=== PATIENT | female | born 1980 | race Caucasian/White ===

== ENCOUNTER 2017-04-01 15:24 | Emergency (ER) | payer MEDICAID, OTHER ==
[2017-04-01 15:44] VITALS: BP 125/95
--- NOTE | 2017-04-01 16:01 | EDM.PDOC ---
ED HPI GENERAL MEDICAL PROBLEM - General Chief Complaint: ENT Problem Stated Complaint: RIGHT EYE SUDDEN LOSS OF VISION Time Seen by Provider: 04/01/17 15:45 Source of Information: Reports: Patient History Limitations: Reports: No Limitations - History of Present Illness INITIAL COMMENTS - FREE TEXT/NARRATIVE: 36-year-old female was running on a treadmill and was about 2 miles into her run when she developed a very sudden "white out" of her vision on the right side. She also developed some facial pain, and tenderness through the zygomatic area. This happened within the last half hour so she came directly to the emergency room. No nausea or vomiting, trauma, or recent illness. Onset: Sudden Duration: Hour(s): (Within the past hour) Location: Reports: Face (Including right zygomatic area and right eye) Severity: Moderate Associated Symptoms: Denies: Confusion, Fever/Chills, Headaches, Loss of Appetite, Shortness of Breath Right Face Pain Score (Numeric/FACES): 7 - Related Data Allergies Allergy/AdvReac Type Severity Reaction Status Date / Time acetaminophen [From Percocet] Allergy Itching Verified 04/01/17 15:48 Latex, Natural Rubber Allergy Itching Verified 04/01/17 15:48 oxycodone HCl [From Percocet] Allergy Itching Verified 04/01/17 15:48 Home Meds: Home Meds Dextroamphetamine/Amphetamine [Dextroamp-Amphet ER] 20 mg PO DAILY 04/01/17 [ History] Past Medical History HEENT History: Reports: Other (See Below) Other HEENT History: MEWDS l eye recent pinkk eye Cardiovascular History: Reports: Hypertension Psychiatric History: Reports: Anxiety Endocrine/Metabolic History: Reports: Other (See Below) Other Endocrine/Metabolic History: past diabeties Type 2 - Infectious Disease History Infectious Disease History: Reports: Chicken Pox, Measles - Past Surgical History GI Surgical History: Reports: Cholecystectomy, Other (See Below) Other GI Surgeries/Procedures: gastric sleve 2014 Social & Family History - Tobacco Use Smoking Status *Q: Never Smoker Second Hand Smoke Exposure: No - Caffeine Use Caffeine Use: Reports: Coffee, Soda - Alcohol Use Days Per Week of Alcohol Use: 0 - Recreational Drug Use Recreational Drug Use: No ED ROS GENERAL - Review of Systems Review Of Systems: See Below Constitutional: Denies: Fever, Chills Respiratory: Denies: Shortness of Breath GI/Abdominal: Denies: Nausea, Vomiting Skin: Reports: No Symptoms Neurological: Denies: Headache ED EXAM GENERAL W FULL EYE - Physical Exam Exam: See Below Exam Limited By: No Limitations General Appearance: Alert, No Apparent Distress, Anxious Visual Acuity (R) 20/: 20 Visual Acuity (L) 20/: 70 With Correction: No Eyelids: Bilateral: Normal Appearance Extraocular Movements: Bilateral: Intact Pupils: Normal Accommodation Pupillary Size: Bilateral: 2 mm Head: Other (Patient does have some palpation tenderness to the zygomatic area of the face on the right side but no asymmetry, swelling, erythema or rash) Respiratory/Chest: No Respiratory Distress Course - Vital Signs Last Recorded V/S: Last Vital Signs Temp 97.7 F 04/01/17 15:56 Pulse 86 04/01/17 15:56 Resp 16 04/01/17 15:56 BP 125/95 H 04/01/17 15:56 Pulse Ox 100 04/01/17 15:56 - Re-Assessments/Exams Free Text/Narrative Re-Assessment/Exam: 04/01/17 16:05 I'm unsure if this is related to arthritis, migraine or retinal injury but I think she needs a fairly urgent ophthalmology examination. Fortunately Dr. Rodgers at [facility] agreed to see the patient so she was sent directly over there. If any further emergency room workup is needed she can be sent back. Departure - Departure Time of Disposition: 16:00 Disposition: Home, Self-Care 01 Condition: Good Clinical Impression: Visual loss - Discharge Information Referrals: Dianne Horton CNM [Primary Care Provider] - Forms: ED Department Discharge Care Plan Goals: Go directly over to [facility] for an eye examination and return for any unfinished testing needed.
== END 2017-04-01 16:02 | disposition home or self-care (01) ==
LOC: JP.ED 15:24
DX: H54.7 Unspecified visual loss (principal); I10 Essential (primary) hypertension; E11.9 Type 2 diabetes mellitus without complications; Z88.6 Allergy status to analgesic agent; Z91.040 Latex allergy status
CPT/HCPCS: 99283

== ENCOUNTER 2019-02-13 07:15 | Day surgery (SDC) | payer BC, MEDICAID ==
[2019-02-13] MEDS ORDERED: Propofol 200 MG/20 ML SDV ONE (07:57)
[2019-02-13] MEDS ORDERED: Midazolam 1 MG/ML 2 ML SDV ONE (07:58)
[2019-02-13] MEDS ORDERED: fentaNYL 100 MCG/2 ML SDV ONE (07:58)
[2019-02-13] MEDS ORDERED: Dextrose 5%-Lactated Ringers 1,000 ML IV SCH (08:00)
[2019-02-13] MEDS ORDERED: Glycopyrrolate 0.2 MG/ML 2 ML SDV IVPUSH ONE (08:00)
[2019-02-13 10:18] VITALS: BP 122/76; PULSE 62
--- NOTE | 2019-02-20 13:28 | OR ---
DATE OF PROCEDURE: 02/13/2019 SURGEON: Blayne Jain MD PREOPERATIVE DIAGNOSIS: Right lower quadrant pain, status post sleeve gastrectomy. POSTOPERATIVE DIAGNOSES: 1. Right lower quadrant pain associated with normal upper GI endoscopic examination, status post sleeve gastrectomy. 2. Normal colonic exam. OPERATIVE PROCEDURE: 1. Esophagogastroduodenoscopy with antral biopsies for CLOtest. 2. Flexible colonoscopy. ANESTHESIA: IV sedation. INDICATION FOR PROCEDURE: This is a 38-year-old who presents with history of sleeve gastrectomy done in the [facility] in 2014. She now is complaining of some pain, which begins in the postprandial period as well as prior to having a bowel movement. The pain is dull, somewhat cramping, but more nagging and associated with some anorexia, nausea, and some diarrhea. Additionally, the patient was noted to have a very low ferritin with a ferritin of 7 and hemoglobin of 9.9, an iron-deficiency type anemia. The plan is to proceed with upper GI endoscopy along with colonoscopy. Of note, the patient did have a normal CT scan, status post previous cholecystectomy and sleeve gastrectomy. The potential risks of the procedure including bleeding and perforation were discussed, and the patient wishes to proceed. DETAILS OF PROCEDURE: The patient was taken to the operating room and placed in a left lateral decubitus position. IV sedation was administered, after which the upper GI endoscope was passed orally through the length of esophagus into the stomach and from there through the pyloric channel and into the junction of third and fourth portions of the duodenum. Overall, the upper GI endoscopic examination was entirely normal. There was no significant inflammation within the hypopharynx, larynx, or esophageal body. At the EG junction, no significant hiatal hernia was noted. Sleeve gastrectomy was free of any significant gross inflammation and appeared to be probably size of the gastric outlet and was unremarkable as was the portion of the duodenum examined. The scope was then withdrawn into the antrum, biopsies obtained for the CLOtest to assess the patient's H pylori status, and the scope then was withdrawn. Attention was taken to the colonoscopy. Initial digital rectal exam was performed and was unremarkable. The colonoscope was passed into the rectum with retroflexion revealing uncomplicated hemorrhoidal columns. The scope was eventually passed to the level of the cecum. The prep was fair. There was some liquid stool present, which obscured small amounts of the mucosal surfaces, but vast majority of the surfaces were well visualized to that level with no abnormalities noticed, particularly there were no areas of colitis, no areas of diverticular disease, and no polyps or other signs of neoplasia. The scope was then withdrawn, and the above findings were reconfirmed and the procedure was then concluded. The patient will be receiving some iron infusions, and her labs will be then checked for problems such as low thiamin or B12 and will be addressed as needed. Otherwise, the patient will be following with Janette Herrera in the next two weeks. If the pain persists, one of the options would be proceeding with diagnostic laparoscopy to make sure there was something surgically amenable. If that were done, an appendectomy would be minimally done. Otherwise, if that is negative, a gastroenterology consult may be warranted. Blayne Jain MD Job #: [id number]
== END 2019-02-13 10:40 | disposition home or self-care (01) ==
LOC: JP.SDS 07:15
PROVIDERS: ATTEND Surgery
DX: R10.31 Right lower quadrant pain (principal); K64.8 Other hemorrhoids; E11.9 Type 2 diabetes mellitus without complications; Z98.84 Bariatric surgery status
CPT/HCPCS: 43239; 45378; 81025; 87081; J2250; J2704; J3010; J3490; J7042

== ENCOUNTER 2019-03-01 10:18 | Emergency (ER) | payer BC, MEDICAID ==
--- NOTE | 2019-03-01 10:44 | EDM.PDOC ---
ED HPI GENERAL MEDICAL PROBLEM - General Chief Complaint: [employer]ING [employer] Problem Stated Complaint: BLEEDING/WEAKNESS Time Seen by Provider: 03/01/19 10:44 Source of Information: Reports: Patient History Limitations: Reports: No Limitations - History of Present Illness INITIAL COMMENTS - FREE TEXT/NARRATIVE: 38 years old female patient presented with chief complaint of heavy menstruation and vaginal bleeding started Saturday. Feeling dizzy and very weak. History of anemia. Also history of utrine mass denies any urinary symptom, suspicious for polyp and scheduled for surgery with [employer]CEIVING [employer]PER[employer] this coming Saturday. Also complaining of right-sided abdominal pain. No nausea or vomiting. Denies any fever. Denies any urinary symptom. Denies any diarrhea or constipation. Right Lower Abdomen Pain Score (Numeric/FACES): 5 - Related Data Allergies Allergy/AdvReac Type Severity Reaction Status Date / Time Latex, Natural Rubber Allergy Severe Itching, Verified 03/01/19 10:36 hives, rash oxycodone HCl [From Percocet] Allergy Intermediate Itching Verified 03/01/19 10: 36 acetaminophen [From Percocet] Allergy Itching Verified 03/01/19 10:36 Home Meds: Home Meds Biotin 5,000 mcg PO DAILY 02/12/19 [History] Cyanocobalamin (Vitamin B-12) [Vitamin B-12] 1,000 mcg PO DAILY 02/12/19 [ History] Ferrous Fumarate/Vitamin C [Vitron-C] 1 tab PO BID 02/12/19 [History] Folic Acid 1 mg pe PO DAILY 02/12/19 [History] Multivitamin [Multi-Vitamin Daily] 1 each PO DAILY 02/12/19 [History] Ondansetron [Ondansetron ODT] 4 mg PO Q8HR PRN 02/12/19 [History] Cholecalciferol (Vitamin D3) [Vitamin D3] 1,000 unit PO DAILY 02/13/19 [History] Vitamin B Complex 1 each PO DAILY 02/13/19 [History] Past Medical History HEENT History: Reports: Other (See Below) Other HEENT History: MEWDS l eye recent pinkk eye Cardiovascular History: Reports: Hypertension Respiratory History: Reports: Other (See Below) Other Respiratory History: pneumonia Genitourinary History: Reports: Other (See Below) Other Genitourinary History: bladder lift [employer] History: Reports: Psychiatric History: Reports: Anxiety Endocrine/Metabolic History: Reports: Other (See Below) Other Endocrine/Metabolic History: past diabeties Type 2 Hematologic History: Reports: Anemia - Infectious Disease History Infectious Disease History: Reports: Chicken Pox, Measles - Past Surgical History GI Surgical History: Reports: Cholecystectomy, Other (See Below) Other GI Surgeries/Procedures: gastric sleve 2014 Social & Family History - Tobacco Use Smoking Status *Q: Never Smoker - Caffeine Use Caffeine Use: Reports: Coffee, Soda - Recreational Drug Use Recreational Drug Use: No ED ROS GENERAL - Review of Systems Review Of Systems: Comprehensive ROS is negative, except as noted in HPI. ED EXAM, RENAL/ - Physical Exam Exam: See Below Exam Limited By: No Limitations General Appearance: Alert, WD/WN, No Apparent Distress Nose: Normal Inspection, Normal Mucosa, No Blood Throat/Mouth: Normal Inspection, Normal Lips, Normal Teeth, Normal Gums, Normal Oropharynx, Normal Voice, No Airway Compromise Head: Atraumatic, Normocephalic Neck: Normal Inspection, Supple, Non-Tender, Full Range of Motion Respiratory/Chest: No Respiratory Distress, Lungs Clear, Normal Breath Sounds, No Accessory Muscle Use, Chest Non-Tender Cardiovascular: Normal Peripheral Pulses, Regular Rate, Rhythm, No Edema, No Gallop, No JVD, No Murmur, No Rub GI/Abdominal: Normal Bowel Sounds, Soft, No Organomegaly, No Distention, No Abnormal Bruit, No Mass, Tender, Other (Right lower quadrant abdominal tenderness. No guarding no rebound.) (Female) Exam: Normal External Exam, Normal Speculum Exam, Vaginal Bleeding. No: Uterine Tenderness, Vaginal Discharge, Vaginal Tears Extremities: Normal Inspection, Normal Range of Motion, Non-Tender, Normal Capillary Refill, No Pedal Edema Neurological: Alert (Review), Oriented, CN II-XII Intact, Normal Cognition, Normal Gait, Normal Reflexes, No Motor/Sensory Deficits Skin Exam: Warm, Dry, Intact, Normal Color, No Rash Course - Vital Signs Last Recorded V/S: Last Vital Signs Temp 37.0 C 03/01/19 10:34 Pulse 64 03/01/19 10:34 Resp 16 03/01/19 10:34 BP 135/83 03/01/19 10:34 Pulse Ox 100 03/01/19 10:34 - Orders/Labs/Meds Labs: Laboratory Tests 03/01/19 03/01/19 03/01/19 Range/Units 11:03 11:03 11:03 WBC 3.9 L (4.5-11.0) K/uL RBC 5.00 (3.30-5.50) M/uL Hgb 11.4 L (12.0-15.0) g/dL Hct 38.5 (36.0-48.0) % MCV 77 L (80-98) fL MCH 23 L (27-31) pg MCHC 30 L (32-36) % Plt Count 367 (150-400) K/uL Neut % (Auto) 46 (36-66) % Lymph % (Auto) 45 H (24-44) % [place] % (Auto) 8 H (2-6) % Eos % (Auto) 1 L (2-4) % Baso % (Auto) 1 (0-1) % PT 10.9 (9.5-12.0) sec INR 1.01 (0.80-1.20) APTT 28.7 (27.0-36.0) sec Sodium 140 (140-148) mmol/L Potassium 3.9 (3.6-5.2) mmol/L Chloride 105 (100-108) mmol/L Carbon Dioxide 26 (21-32) mmol/L Anion Gap 8.9 (5.0-14.0) mmol/L BUN 7 (7-18) mg/dL Creatinine 0.6 (0.6-1.0) mg/dL Est Cr Clr Drug Dosing 116.68 mL/min Estimated GFR (MDRD) > 60 (>60) Glucose 85 (74-106) mg/dL Lactic Acid (0.4-2.0) mmol/L Calcium 8.1 L (8.5-10.1) mg/dL Total Bilirubin 0.4 (0.2-1.0) mg/dL AST 16 (15-37) U/L ALT 31 (12-78) U/L Alkaline Phosphatase 72 (46-116) U/L Total Protein 6.8 (6.4-8.2) g/dL Albumin 3.5 (3.4-5.0) g/dL Globulin 3.3 (2.3-3.5) g/dL Albumin/Globulin Ratio 1.1 L (1.2-2.2) Lipase 187 (73-393) U/L Urine Color (YELLOW) Urine Appearance (CLEAR) Urine pH (5.0-8.0) Ur Specific [place] (1.008-1.030) Urine Protein (NEGATIVE) mg/dL Urine Glucose (UA) (NEGATIVE) mg/dL Urine Ketones (NEGATIVE) mg/dL Urine Occult Blood (NEGATIVE) Urine Nitrite (NEGATIVE) Urine Bilirubin (NEGATIVE) Urine Urobilinogen (0.2-1.0) EU/dL Ur Leukocyte Esterase (NEGATIVE) Urine RBC (0-5) Urine WBC (0-5) Ur Epithelial Cells Amorphous Sediment Urine Bacteria Urine Mucus Urine HCG, Qual 03/01/19 03/01/19 03/01/19 Range/Units 11:03 11:35 11:35 WBC (4.5-11.0) K/uL RBC (3.30-5.50) M/uL Hgb (12.0-15.0) g/dL Hct (36.0-48.0) % MCV (80-98) fL MCH (27-31) pg MCHC (32-36) % Plt Count (150-400) K/uL Neut % (Auto) (36-66) % Lymph % (Auto) (24-44) % [place] % (Auto) (2-6) % Eos % (Auto) (2-4) % Baso % (Auto) (0-1) % PT (9.5-12.0) sec INR (0.80-1.20) APTT (27.0-36.0) sec Sodium (140-148) mmol/L Potassium (3.6-5.2) mmol/L Chloride (100-108) mmol/L Carbon Dioxide (21-32) mmol/L Anion Gap (5.0-14.0) mmol/L BUN (7-18) mg/dL Creatinine (0.6-1.0) mg/dL Est Cr Clr Drug Dosing mL/min Estimated GFR (MDRD) (>60) Glucose (74-106) mg/dL Lactic Acid 1.3 (0.4-2.0) mmol/L Calcium (8.5-10.1) mg/dL Total Bilirubin (0.2-1.0) mg/dL AST (15-37) U/L ALT (12-78) U/L Alkaline Phosphatase (46-116) U/L Total Protein (6.4-8.2) g/dL Albumin (3.4-5.0) g/dL Globulin (2.3-3.5) g/dL Albumin/Globulin Ratio (1.2-2.2) Lipase (73-393) U/L Urine Color Red A (YELLOW) Urine Appearance Turbid A (CLEAR) Urine pH 7.0 (5.0-8.0) Ur Specific [place] 1.015 (1.008-1.030) Urine Protein >=300 H (NEGATIVE) mg/dL Urine Glucose (UA) Negative (NEGATIVE) mg/dL Urine Ketones Negative (NEGATIVE) mg/dL Urine Occult Blood Large H (NEGATIVE) Urine Nitrite Negative (NEGATIVE) Urine Bilirubin Negative (NEGATIVE) Urine Urobilinogen 0.2 (0.2-1.0) EU/dL Ur Leukocyte Esterase Trace H (NEGATIVE) Urine RBC Packed H (0-5) Urine WBC 0-5 (0-5) Ur Epithelial Cells Few Amorphous Sediment Not seen Urine Bacteria Rare Urine Mucus Not seen Urine HCG, Qual Negative Meds: Medications Discontinued Medications Generic Name Dose Route Start Last Admin Trade Name Freq PRN Reason Stop Dose Admin Sodium Chloride 75 mls @ 3 mls/sec 03/01/19 11:15 03/01/19 11:54 Normal Saline IV 3 mls/sec ASDIRECTED JACINTO Administration Sodium Chloride 1,000 mls @ 999 mls/hr 03/01/19 14:00 Normal Saline IV .BOLUS JACINTO Sodium Chloride 1,000 mls @ 999 mls/hr 03/01/19 15:09 03/01/19 15:13 Normal Saline IV 03/01/19 16:09 999 mls/hr ONETIME ONE Administration Iopamidol 150 ml 03/01/19 11:11 03/01/19 11:54 Isovue-300 (61%) IV 03/02/19 11:12 150 ml . DIRECTED PRN Administration RADIOLOGY EXAM - Re-Assessments/Exams Free Text/Narrative Re-Assessment/Exam: 03/01/19 19:32 Patient was seen and examined shortly after arrival. Stable. She is orthostatic. Given 1 L normal saline bolus. Symptom improved. Blood pressure has been stable. Lab and imaging reviewed with the patient. CT did not show any explanation of the patient abdominal pain. Pelvic ultrasound shows no acute abnormalities. No ovarian torsion. This is most likely menometrorrhagia, possibly aggravated by her intrauterine mass/polyp. I did offer her admission for pain control, hydration, monitoring versus transferring to see [employer]. Patient refused. Want to be discharged home. Advised to keep her appointment with her [employer]CE[employer]ING [employer] this coming Saturday. Come back for any concern or any worsening symptom. Rest and stay well-hydrated. Patient agrees with the plan. Stable for discharge. Departure - Departure Time of Disposition: 16:16 Disposition: Home, Self-Care 01 Condition: Good Clinical Impression: Menometrorrhagia - Discharge Information *PRESCRIPTION DRUG MONITORING PROGRAM REVIEWED*: Not Applicable *COPY OF PRESCRIPTION DRUG MONITORING REPORT IN PATIENT MABLE: Not Applicable Instructions: Metrorrhagia, Menorrhagia Referrals: Dianne Horton CNM [Primary Care Provider] - Forms: ED Department Discharge Additional Instructions: Rest and stay well-hydrated Close follow-up with PCP Keep her appointment with [employer] in 2 days Come back for any concern or any worsening symptom - Assessment/Plan Plan: Rest and stay well-hydrated Close follow-up with PCP Keep her appointment with [employer] in 2 days Come back for any concern or any worsening symptom
[2019-03-01 10:55] VITALS: BP 135/83; PULSE 64
[2019-03-01] MEDS ORDERED: Iopamidol 612 MG/ML 150 ML Bottle IV PRN (11:11)
[2019-03-01] MEDS ORDERED: Sodium Chloride 0.9% 75 ML IV SCH (11:15)
--- NOTE | 2019-03-01 12:46 | CRLCT ---
INDICATION: comparison from 2018 349 [id number] abd pain- 378 [id number] of isovue 300 Indication: Right lower quadrant abdominal pain. Technique: CT of the abdomen and pelvis. 111 cc of Isovue-300 IV. Coronal/sagittal reconstruction images. Comparison: CT of the abdomen and pelvis, 02/09/2019. Findings: Lung bases: Bilateral breast implants. No pleural or pericardial effusion. Heart size is normal. There is no acute airspace disease. There is no basilar pneumothorax. Abdomen/pelvis: Non cirrhotic liver morphology. No suspicious liver lesion. There is a 5-6 millimeter lesion in the dome of the liver, image 23, series 2, which is too small to further characterize, but likely benign. No change when compared with 02/09/2019. Cholecystectomy. No perihepatic ascites. Normal caliber biliary tree. There is no pancreatic mass, pancreatic duct dilation, or glandular atrophy. Calcified splenic granulomas. No adrenal mass. There is no hydronephrosis. There are no perinephric inflammatory changes. Urinary bladder is normal. No adnexal mass. There is no wall thickening within the small bowel or colon. There is no perienteric edema. There is no transition point. Normal caliber appendix, which is seen best on image 108, series 2. No adenopathy by size criteria in the pelvis, retroperitoneum, or gastrohepatic ligament. Postoperative changes of a sleeve gastrectomy, with anastomotic sutures along the greater curvature. The bone windows demonstrate no lytic or blastic bone lesions. The alignment is preserved. Sagittal reconstruction images are within normal limits. Impression: 1. No findings are seen to explain the patient`s abdominal pain. 2. Prior cholecystectomy/sleeve gastrectomy. 3. Normal caliber appendix. 4. No abdominal or pelvic lymphadenopathy by size criteria. Dictated by Ky Reed MD @ 03/01/2019 12:43:58 PM Please note that all CT scans at this facility use dose modulation, iterative reconstruction, and/or weight-based dosing when appropriate to reduce radiation dose to as low as reasonably achievable. Dictated by: Ky Reed MD @ 03/01/2019 12:44:09 (Electronically Signed)
[2019-03-01] MEDS ORDERED: Sodium Chloride 0.9% 1,000 ML IV SCH (14:00)
[2019-03-01] MEDS ORDERED: Sodium Chloride 0.9% 1,000 ML IV ONE (15:09)
--- NOTE | 2019-03-01 15:23 | CRLUS ---
INDICATION: Right-sided pain. TECHNIQUE: Ultrasound pelvis transabdominal. Real-time sonographic images with spectral and color Doppler imaging of the ovaries were obtained. Patient refused transvaginal exam. COMPARISON: CT abdomen pelvis March 01, 2019. FINDINGS: Uterus: 8 x 5 x 5 cm. Normal echotexture of the myometrium. No masses. Endometrium: Endometrial thickness measures 9 mm. No sign of endometrial mass or fluid. Right ovary measures 3 x 2 x 1 cm and left ovary measures 3 x 2 x 2 cm. No ovarian or adnexal masses. Normal arterial and venous blood flow is demonstrated in both ovaries. Cul-de-sac: No significant free fluid. IMPRESSION: Normal pelvic ultrasound. Dictated by Torsten Smith MD @ 03/01/2019 3:22:08 PM Dictated by: Torsten Smith MD @ 03/01/2019 15:22:23 (Electronically Signed)
== END 2019-03-01 16:38 | disposition home or self-care (01) ==
LOC: JP.ED 10:18
DX: N92.1 Excessive and frequent menstruation with irregular cycle (principal); I10 Essential (primary) hypertension; E11.9 Type 2 diabetes mellitus without complications; D64.9 Anemia, unspecified; Z88.5 Allergy status to narcotic agent; Z88.6 Allergy status to analgesic agent; Z91.040 Latex allergy status; Z79.899 Other long term (current) drug therapy
CPT/HCPCS: 36415; 74177; 76856; 80053; 81001; 81025; 83605; 83690; 85025; 85610; 85730; 96360; 99285; J7040; J7050; Q9967

== ENCOUNTER 2020-01-26 06:17 | Emergency (ER) | payer BC, MEDICAID ==
[2020-01-26] MEDS ORDERED: Sodium Chloride 0.9% 1,000 ML IV SCH (07:30)
--- NOTE | 2020-01-26 07:30 | EDM.PDOC ---
ED HPI GENERAL MEDICAL PROBLEM - General Chief Complaint: General Stated Complaint: MIGRANE Time Seen by Provider: 01/26/20 07:24 Source of Information: Reports: Patient History Limitations: Reports: No Limitations - History of Present Illness INITIAL COMMENTS - FREE TEXT/NARRATIVE: pt has been ill since sat. She did run a temp on Sat and saturday and none today. She has a rt sided headache with loss of vision oin the left eye. She can make out some images but is not able to read This started today. Onset: Today Duration: Hour(s): Location: Reports: Head, Other ( no history of migraine headache. ) Associated Symptoms: Reports: Headaches Left Head Pain Score (Numeric/FACES): 9 - Related Data Allergies Allergy/AdvReac Type Severity Reaction Status Date / Time Latex, Natural Rubber Allergy Severe Itching, Verified 01/26/20 06:38 hives, rash oxycodone HCl [From Percocet] Allergy Intermediate Itching Verified 01/26/20 06:38 acetaminophen [From Percocet] Allergy Itching Verified 01/26/20 06:38 NSAIDS (Non-Steroidal Allergy Cannot Verified 01/26/20 08:15 Anti-Inflamma Remember Home Meds: Home Meds Biotin 5,000 mcg PO DAILY 02/12/19 [History] Cyanocobalamin (Vitamin B-12) [Vitamin B-12] 1,000 mcg PO DAILY 02/12/19 [History] Ferrous Fumarate/Vitamin C [Vitron-C] 1 tab PO BID 02/12/19 [History] Folic Acid 1 mg pe PO DAILY 02/12/19 [History] Multivitamin [Multi-Vitamin Daily] 1 each PO DAILY 02/12/19 [History] Cholecalciferol (Vitamin D3) [Vitamin D3] 1,000 unit PO DAILY 02/13/19 [History] Vitamin B Complex 1 each PO DAILY 02/13/19 [History] Celecoxib [CeleBREX] 100 mg PO BID 01/26/20 [History] Past Medical History HEENT History: Reports: Allergic Rhinitis, Hard of Hearing, Other (See Below) Other HEENT History: MEWDS left eye Cardiovascular History: Reports: Hypertension Respiratory History: Reports: Pneumonia, Recurrent Other Respiratory History: pneumonia Gastrointestinal History: Reports: Irritable Bowel Syndrome Genitourinary History: Reports: Other (See Below) Other Genitourinary History: bladder lift [employer] History: Reports: Neurological History: Reports: Other (See Below) Other Neuro History: 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 Psychiatric History: Reports: ADHD, Anxiety, Depression, Panic Attack Endocrine/Metabolic History: Reports: Diabetes, Type II, Vitamin D Deficiency Other Endocrine/Metabolic History: past diabeties Type 2 Hematologic History: Reports: Anemia, B12 Deficiency, Folic Acid Oncologic (Cancer) History: Reports: Malignant Melanoma - Infectious Disease History Infectious Disease History: Reports: Chicken Pox, Influenza - Past Surgical History Head Surgeries/Procedures: Reports: None HEENT Surgical History: Reports: Adenoidectomy, Myringotomy w Tube(s), Tonsillectomy, Other (See Below) Other HEENT Surgeries/Procedures: legally deaf at age 3, surgery repaired this GI Surgical History: Reports: Bariatric Procedure, Cholecystectomy, Colonoscopy, EGD, Other (See Below) Other GI Surgeries/Procedures: gastric sleve 2014 Female Surgical History: Reports: Hysterectomy, Salpingo-Oophorectomy Oncologic Surgical History: Reports: Other (See Below) Other Oncologic Surgeries/Procedures: surgically removed melanoma Dermatological Surgical History: Reports: None Social & Family History - Tobacco Use Tobacco Use Status *Q: Never Tobacco User - Caffeine Use Caffeine Use: Reports: Coffee - Recreational Drug Use Recreational Drug Use: No ED ROS GENERAL - Review of Systems Review Of Systems: See Below Constitutional: Reports: No Symptoms HEENT: Reports: Other (loss of vision in the left eye. ) Respiratory: Reports: No Symptoms Cardiovascular: Reports: No Symptoms Endocrine: Reports: No Symptoms GI/Abdominal: Reports: Nausea, Other ( she notes the nausea when she goes to stand up. ) : Reports: No Symptoms Musculoskeletal: Reports: No Symptoms Skin: Reports: No Symptoms ED EXAM, GENERAL - Physical Exam Exam: See Below Free Text/Narrative:: pt arrived with visual loss in the left eye. She can see forms but is not able to read with the eye. She states this is acute. Pt has a left sided headache. She has no history of migraine headaches . She also does not have a family history of migraines. Pt has had a headache since Sat. She did have 2 days of fever. She is Covid neg. Exam Limited By: No Limitations General Appearance: Alert, Moderate Distress, Other (pt is uncomfortable with the headache. Her pupils are equal and reactive. Her fundi on the left does not reveal hemmorage. ) Ears: Normal TMs Nose: Normal Inspection Throat/Mouth: Normal Inspection Head: Atraumatic Neck: Normal Inspection Respiratory/Chest: No Respiratory Distress Cardiovascular: Regular Rate, Rhythm GI/Abdominal: Soft, Non-Tender (Female) Exam: Deferred Rectal (Female) Exam: Deferred Back Exam: Normal Inspection Extremities: Normal Inspection Neurological: Alert, Oriented, Normal Cognition, Other ( uncomfortable with the headache. ) Psychiatric: Anxious Course - Vital Signs Last Recorded V/S: Last Vital Signs Temp 36.7 C 01/26/20 06:40 Pulse 47 L 01/26/20 10:20 Resp 16 01/26/20 10:20 BP 143/80 H 01/26/20 10:20 Pulse Ox 97 01/26/20 10:20 - Orders/Labs/Meds Orders: Active Orders 24 hr Category Date Time Status Sodium Chloride 0.9% [Normal Saline] 1,000 ml Med 01/26/20 07:30 Active IV ASDIRECTED Medication Orders Sodium Chloride (Normal Saline) 1,000 mls @ 999 mls/hr IV ASDIRECTED JACINTO Last Admin: 01/26/20 08:07 Dose: 999 mls/hr Documented by: [email or web address] Labs: Laboratory Tests 01/26/20 01/26/20 01/26/20 Range/Units 07:37 07:37 08:39 WBC 5.0 (4.5-11.0) K/uL RBC 4.60 (3.30-5.50) M/uL Hgb 13.5 D (12.0-15.0) g/dL Hct 41.2 (36.0-48.0) % MCV 90 (80-98) fL MCH 29 (27-31) pg MCHC 33 (32-36) % Plt Count 272 (150-400) K/uL Neut % (Auto) 46 (36-66) % Lymph % (Auto) 42 (24-44) % [place] % (Auto) 10 H (2-6) % Eos % (Auto) 1 L (2-4) % Baso % (Auto) 1 (0-1) % Sodium 143 (140-148) mmol/L Potassium 3.8 (3.6-5.2) mmol/L Chloride 106 (100-108) mmol/L Carbon Dioxide 28 (21-32) mmol/L Anion Gap 8.7 (5.0-14.0) mmol/L BUN 13 D (7-18) mg/dL Creatinine 0.7 (0.6-1.0) mg/dL Est Cr Clr Drug Dosing 102.85 mL/min Estimated GFR (MDRD) > 60 (>60) Glucose 88 (74-106) mg/dL Calcium 8.3 L (8.5-10.1) mg/dL Total Bilirubin 0.5 (0.2-1.0) mg/dL AST 15 (15-37) U/L ALT 24 (12-78) U/L Alkaline Phosphatase 75 (46-116) U/L Total Protein 6.2 L (6.4-8.2) g/dL Albumin 3.2 L (3.4-5.0) g/dL Globulin 3.0 (2.3-3.5) g/dL Albumin/Globulin Ratio 1.1 L (1.2-2.2) Urine Color (YELLOW) Urine Appearance (CLEAR) Urine pH (5.0-8.0) Ur Specific [place] (1.008-1.030) Urine Protein (NEGATIVE) mg/dL Urine Glucose (UA) (NEGATIVE) mg/dL Urine Ketones (NEGATIVE) mg/dL Urine Occult Blood (NEGATIVE) Urine Nitrite (NEGATIVE) Urine Bilirubin (NEGATIVE) Urine Urobilinogen (0.2-1.0) EU/dL Ur Leukocyte Esterase (NEGATIVE) Urine RBC (0-5) Urine WBC (0-5) Ur Epithelial Cells Amorphous Sediment Urine Bacteria Urine Mucus Urine Other SARS CoV-2 RNA Rapid NEIL Negative 01/26/20 Range/Units 09:20 WBC (4.5-11.0) K/uL RBC (3.30-5.50) M/uL Hgb (12.0-15.0) g/dL Hct (36.0-48.0) % MCV (80-98) fL MCH (27-31) pg MCHC (32-36) % Plt Count (150-400) K/uL Neut % (Auto) (36-66) % Lymph % (Auto) (24-44) % [place] % (Auto) (2-6) % Eos % (Auto) (2-4) % Baso % (Auto) (0-1) % Sodium (140-148) mmol/L Potassium (3.6-5.2) mmol/L Chloride (100-108) mmol/L Carbon Dioxide (21-32) mmol/L Anion Gap (5.0-14.0) mmol/L BUN (7-18) mg/dL Creatinine (0.6-1.0) mg/dL Est Cr Clr Drug Dosing mL/min Estimated GFR (MDRD) (>60) Glucose (74-106) mg/dL Calcium (8.5-10.1) mg/dL Total Bilirubin (0.2-1.0) mg/dL AST (15-37) U/L ALT (12-78) U/L Alkaline Phosphatase (46-116) U/L Total Protein (6.4-8.2) g/dL Albumin (3.4-5.0) g/dL Globulin (2.3-3.5) g/dL Albumin/Globulin Ratio (1.2-2.2) Urine Color Yellow (YELLOW) Urine Appearance Clear (CLEAR) Urine pH 7.0 (5.0-8.0) Ur Specific [place] 1.020 (1.008-1.030) Urine Protein Negative (NEGATIVE) mg/dL Urine Glucose (UA) Negative (NEGATIVE) mg/dL Urine Ketones Negative (NEGATIVE) mg/dL Urine Occult Blood Negative (NEGATIVE) Urine Nitrite Negative (NEGATIVE) Urine Bilirubin Negative (NEGATIVE) Urine Urobilinogen 0.2 (0.2-1.0) EU/dL Ur Leukocyte Esterase Negative (NEGATIVE) Urine RBC 0-5 (0-5) Urine WBC 0-5 (0-5) Ur Epithelial Cells Rare Amorphous Sediment Occasional Urine Bacteria Rare Urine Mucus Occasional Urine Other SARS CoV-2 RNA Rapid NEIL Meds: Medications Generic Name Dose Route Start Last Admin Trade Name Freq PRN Reason Stop Dose Admin Sodium Chloride 1,000 mls @ 999 mls/hr 01/26/20 07:30 01/26/20 08:07 Normal Saline IV 999 mls/hr ASDIRECTED JACINTO Administration Discontinued Medications Generic Name Dose Route Start Last Admin Trade Name Freq PRN Reason Stop Dose Admin Hydromorphone HCl 0.5 mg 01/26/20 08:51 01/26/20 09:04 Dilaudid IVPUSH 01/26/20 08:52 0.5 mg ONETIME ONE Administration Ketorolac Tromethamine 30 mg 01/26/20 08:15 01/26/20 08:30 Toradol IVPUSH 01/26/20 08:16 30 mg ONETIME ONE Administration Ondansetron HCl 4 mg 01/26/20 08:01 01/26/20 09:12 Zofran IVPUSH 01/26/20 08:02 Not Given ONETIME ONE Prochlorperazine Edisylate 10 mg 01/26/20 08:52 01/26/20 09:05 Compazine IVPUSH 01/26/20 08:53 10 mg ONETIME ONE Administration - Re-Assessments/Exams Free Text/Narrative Re-Assessment/Exam: 01/26/20 10:53 pt had a cat scan of the head which was neg. Her Mri of the brain also was neg. She has improvement in the headache. Her visual loss is not better. will send pt to the [place] [facility] to have her retina reevaluated. Pt is Covid neg. 01/26/20 11:07 Departure - Departure Time of Disposition: 10:42 Disposition: Home, Self-Care 01 Condition: Fair Clinical Impression: Headache, Visual loss, left eye - Discharge Information Instructions: General Headache Without Cause Referrals: PCP,None [Primary Care Provider] - Forms: ED Department Discharge Care Plan Goals: pt arrived with a headache and acute visual loss in the left eye. pt had a MRI and a cat scan of the head with no significant findings. She has been given meds with decrease in the headache. Persistent visual loss is present. Dr Moran at the [facility] will look at the eye and the retina. Pt will leave here and will go to the eye clinic. fo the headache pt can use tylenol and motrin for pain, rest, 4 norco will be given to the pt. Sepsis Event Note (ED) - Evaluation Sepsis Screening Result: Possible Sepsis Risk - Focused Exam Vital Signs: Vital Signs Temp Pulse Resp BP Pulse Ox 01/26/20 10:20 47 L 16 143/80 H 97 01/26/20 09:56 61 16 185/99 H 99 01/26/20 08:00 184/97 H 01/26/20 06:40 36.7 C 95 19 139/99 H 96 - My Orders Last 24 Hours: My Active Orders 01/26/20 07:30 Sodium Chloride 0.9% [Normal Saline] 1,000 ml IV ASDIRECTED - Assessment/Plan Last 24 Hours: My Active Orders 01/26/20 07:30 Sodium Chloride 0.9% [Normal Saline] 1,000 ml IV ASDIRECTED
[2020-01-26] MEDS ORDERED: Ondansetron 4 MG/2 ML SDV IVPUSH ONE (08:01)
[2020-01-26] MEDS ORDERED: Ketorolac 30 MG/ML SDV IVPUSH ONE (08:15)
[2020-01-26] MEDS ORDERED: HYDROmorphone 0.5 MG/0.5 ML Syringe IVPUSH ONE (08:51)
[2020-01-26] MEDS ORDERED: Prochlorperazine 10 MG/2 ML SDV IVPUSH ONE (08:52)
--- NOTE | 2020-01-26 09:03 | CT ---
Head wo Cont CLINICAL HISTORY: Loss of vision left eye COMPARISON: MR brain 12/20/2017 TECHNIQUE: Transverse scans were obtained from the base of the skull through the vertex without IV contrast on a multislice, multidetector CT scanner. Auto dosage reduction and iterative reconstruction techniques employed. FINDINGS: No focal abnormal parenchymal density is identified. There is no mass effect, hemorrhage, or extraaxial collection. The basal cisterns and sulci over the convexities are normal. The ventricles are normal for age. Limited evaluation of the orbits shows no mass or significant asymmetry. IMPRESSION: No acute intracranial abnormality
[2020-01-26 10:22] VITALS: BP 143/80; PULSE 47
--- NOTE | 2020-01-26 10:36 | MR ---
Brain wo Cont CLINICAL HISTORY: Headache, visual disturbances COMPARISON: Current CT, prior MRI 2018 TECHNIQUE: Multiple axial, sagittal, and coronal images were obtained on a 1.5 T magnet with multiweighted sequences, FLAIR, and diffusion imaging without contrast. FINDINGS: There is significant artifact due to dental hardware. There is no focal mass lesion. There is no hemmorhage or extraaxial collection. No obvious restricted diffusion is identified. The basal cisterns and sulci over the convexities are normal. The ventricles are are normal for age. Limited imaging through the orbits shows no significant asymmetry. IMPRESSION: Moderately limited MRI due to field artifact No acute intracranial process identified
== END 2020-01-26 11:20 | disposition home or self-care (01) ==
LOC: JP.ED 06:17
DX: H54.62 Unqualified visual loss, left eye, normal vision right eye (principal); I10 Essential (primary) hypertension; E11.9 Type 2 diabetes mellitus without complications; Z79.899 Other long term (current) drug therapy; Z91.040 Latex allergy status; Z88.5 Allergy status to narcotic agent; Z88.6 Allergy status to analgesic agent; Z88.8 Allergy status to other drugs, medicaments and biological substances; Z20.828 Contact with and (suspected) exposure to other viral communicable diseases
CPT/HCPCS: 36415; 70450; 70551; 80053; 81001; 85025; 87635; 96374; 96375; 99284; J0780; J1170; J1885; J7030; U0002

== ENCOUNTER 2022-11-06 11:28 | Emergency (ER) | payer OTHER, MEDICAID ==
[2022-11-06] MEDS ORDERED: Sodium Chloride 0.9% 10 ML Syringe FLUSH PRN (12:38)
[2022-11-06] MEDS ORDERED: Sodium Chloride 0.9% 1,000 ML IV STA (12:38)
[2022-11-06 12:55] LABS: BASOPHILS ABSOLUTE AUTO 0.03 K/uL (0.00-0.10); BASOPHILS PERCENT AUTO 0.4 % (0.1-1.3); EOSINOPHILS ABSOLUTE AUTO 0.04 K/uL (0.00-0.40); EOSINOPHILS PERCENT AUTO 0.5 % (0.0-5.4); HEMATOCRIT 41.5 % (34.3-46.0); HEMOGLOBIN 13.8 g/dL (11.2-15.5); IMMATURE GRAN PERCENT AUTO 0.2 % (0.0-0.7); LYMPHOCYTES ABSOLUTE AUTO 2.31 K/uL (0.8-3.3); LYMPHOCYTES PERCENT AUTO 27.8 % (11.4-47.7); MEAN CORPUSCULAR HEMOGLOBIN 29.2 pg (31.6-35.5); MEAN CORPUSCULAR HGB CONC 33.3 g/dL (31.6-35.5); MEAN CORPUSCULAR VOLUME 87.7 fL (81.4-99.0); MONOCYTES ABSOLUTE AUTO 0.73 K/uL (0.20-0.90); MONOCYTES PERCENT AUTO 8.8 % (3.3-12.6); NEUTROPHILS ABSOLUTE AUTO 5.17 K/uL (1.0-7.6); NEUTROPHILS PERCENT AUTO 62.3 % (40.0-78.1); PLATELET COUNT,PLT 327 K/uL (130-375); RED BLOOD CELL COUNT 4.73 M/uL (3.77-5.24); WHITE BLOOD CELL COUNT,WBC 8.3 K/uL (3.2-11.0)
[2022-11-06 12:59] LABS: IMMATURE GRAN ABSOLUTE AUTO 0.02 K/uL (0.00-0.23)
[2022-11-06 13:01] LABS: APPEARANCE,URINE CLEAR (CLEAR); BILIRUBIN,URINE NEGATIVE (NEGATIVE); COLOR,URINE YELLOW (YELLOW); GLUCOSE,URINE NEGATIVE (NEGATIVE); KETONES,URINE NEGATIVE (NEGATIVE); LEUKOCYTE ESTERASE,URINE NEGATIVE (NEGATIVE); NITRITE,URINE NEGATIVE (NEGATIVE); OCCULT BLOOD,URINE NEGATIVE (NEGATIVE); PROTEIN,URINE NEGATIVE (NEGATIVE); UROBILINOGEN,URINE 0.2 EU/dL (0.2-1.0)
[2022-11-06] MEDS ORDERED: Ketorolac 30 MG/ML SDV IVPUSH STA (13:01)
[2022-11-06] MEDS ORDERED: Iopamidol 612 MG/ML 100 ML Bottle IV ONE (13:05)
[2022-11-06] MEDS ORDERED: Sodium Chloride 0.9% 50 ML IV SCH (13:15)
[2022-11-06 13:16] LABS: ALANINE AMINOTRANSFERASE,ALT 35 U/L (12-78); ALBUMIN 3.5 g/dL (3.4-5.0); ALKALINE PHOSPHATASE 96 U/L (46-116); ASPARTATE AMNIOTRANSFERASE,AST 23 U/L (15-37); BILIRUBIN TOTAL 0.4 mg/dL (0.2-1.0); BLOOD UREA NITROGEN,BUN 9 mg/dL (7-18); CALCIUM 8.7 mg/dL (8.5-10.1); CARBON DIOXIDE,CO2 27 mmol/L (21-32); CHLORIDE,CL 102 mmol/L (100-108); CREATININE 0.7 mg/dL (0.6-1.0); EST CRCL DRUG DOSING (CG) 96.01 mL/min; ESTIMATED GFR 109 mL/min (>60); GLUCOSE RANDOM 92 mg/dL (74-106); POTASSIUM,K 3.8 mmol/L (3.6-5.2); PROTEIN TOTAL,TP 6.9 g/dL (6.4-8.2); SODIUM,NA 139 mmol/L (140-148)
[2022-11-06 13:20] LABS: ANION GAP 13.8 mmol/L (5.0-14.0)
[2022-11-06 13:46] LABS: RBC,URINE NOT SEEN (0-5); WBC,URINE 0-5 (0-5)
[2022-11-06 13:47] LABS: AMORPHOUS SEDIMENT,URINE NOT SEEN; BACTERIA,URINE NOT SEEN; EPITHELIAL CELLS,URINE RARE; MUCUS,URINE NOT SEEN
[2022-11-06 14:48] VITALS: BP 120/83; PULSE 75
== END 2022-11-06 14:40 | disposition home or self-care (01) ==
LOC: JP.ED 11:28
DX: R10.30 Lower abdominal pain, unspecified (principal); M54.50 Low back pain, unspecified; I10 Essential (primary) hypertension; E11.9 Type 2 diabetes mellitus without complications; Z86.16 Personal history of COVID-19; Z79.899 Other long term (current) drug therapy; Z91.040 Latex allergy status; Z88.5 Allergy status to narcotic agent; Z88.6 Allergy status to analgesic agent
CPT/HCPCS: 36415; 74177; 74177-26; 80053; 81001; 83605; 83690; 85025; 96374; 99284; 99284-25; J1885; J3490; J7030; Q9967